=== PATIENT | male | born 1945 | race Hispanic/Latino ===

== ENCOUNTER 2016-09-21 11:04 | Outpatient (CLI) | payer OTHER, MEDICARE ==
[2016-09-21 12:36] LABS: #Eosinphils 0.1 thou/uL (0.0-0.7); #Monocytes 0.4 thou/uL (0.11-0.59); #Neutrophils 4.4 thou/uL (1.40-6.50); %Basophils 0.6 % (0.0-1.0); %Monocytes 6.3 % (0.0-10.0); Hematocrit 41.2 % (42.0-52.0); Mean Platelet Volume 8.7 fL (7.4-10.4); Red Blood Cell (RBC) Count 4.13 mill/uL (4.70-6.10)
[2016-09-21 12:57] LABS: ALT (SGPT) 15 U/L (0-55); AST (SGOT) 16 U/L (5-34); Alkaline Phosphatase 69 U/L (40-150); Anion Gap 11 mmol/L (10-20); BUN (Urea Nitrogen) 11 mg/dL (8.4-25.7); Bilirubin, Total 0.6 mg/dL (0.2-1.2); Calc. Creatinine Clearance 0 mL/min (70-130); Calcium 8.5 mg/dL (7.8-10.44); Carbon Dioxide 26 mmol/L (23-31); Chloride 112 mmol/L (98-107); Estimated GFR-MDRD Greater than 90; Globulin 2.8 g/dL (2.4-3.5); Protein, Total 6.6 g/dL (5.8-8.1)
[2016-09-21 13:25] LABS: Hemoglobin A1c 6.9 % (4.0-6.0)
[2016-09-21 19:18] LABS: Microalbumin Urine 1.1 mg/dL (0.5-50.0)
== END 2016-09-21 11:05 | disposition home or self-care (01) ==
LOC: HPCALD 11:04
PROVIDERS: ATTEND Family Medicine
DX: E11.65 Type 2 diabetes mellitus with hyperglycemia (principal)
CPT/HCPCS: 36415; 80053; 82043; 83036; 84443; 85025

== ENCOUNTER 2016-09-25 15:52 | Outpatient (CLI) | payer OTHER, MEDICARE | END 2016-09-25 15:53 | disposition home or self-care (01) | LOC: HPCALD 15:52 | PROVIDERS: ATTEND Family Medicine | DX: D53.9 Nutritional anemia, unspecified (principal) | CPT/HCPCS: 36415; 82607; 82746 ==

== ENCOUNTER 2017-04-23 16:03 | Outpatient (CLI) | payer OTHER, MEDICARE ==
[2017-04-23 16:35] LABS: ALT (SGPT) 19 U/L (8-55); AST (SGOT) 24 U/L (5-34); Albumin 4.4 g/dL (3.4-4.8); Alkaline Phosphatase 70 U/L (40-150); Anion Gap 18 mmol/L (10-20); BUN (Urea Nitrogen) 22 mg/dL (8.4-25.7); Bilirubin, Total 0.8 mg/dL (0.2-1.2); Calc. Creatinine Clearance 0 mL/min (70-130); Calcium 9.3 mg/dL (7.8-10.44); Carbon Dioxide 21 mmol/L (23-31); Chloride 108 mmol/L (98-107); Estimated GFR-MDRD 50; Globulin 3.1 g/dL (2.4-3.5); Glucose 124 mg/dL (80-115); Potassium 4.2 mmol/L (3.5-5.1); Protein, Total 7.5 g/dL (5.8-8.1); Sodium 143 mmol/L (136-145)
== END 2017-04-23 16:04 | disposition home or self-care (01) ==
LOC: HPCALD 16:03
PROVIDERS: ATTEND Family Medicine
DX: I50.9 Heart failure, unspecified (principal)
CPT/HCPCS: 36415; 80053; 83880

== ENCOUNTER 2017-04-26 15:49 | Outpatient (CLI) | payer OTHER, MEDICARE ==
[2017-04-26 16:46] LABS: Anion Gap 19 mmol/L (10-20); BUN (Urea Nitrogen) 27 mg/dL (8.4-25.7); Calc. Creatinine Clearance 0 mL/min (70-130); Calcium 9.3 mg/dL (7.8-10.44); Carbon Dioxide 21 mmol/L (23-31); Chloride 108 mmol/L (98-107); Estimated GFR-MDRD 59; Glucose 62 mg/dL (80-115); Potassium 4.2 mmol/L (3.5-5.1); Sodium 144 mmol/L (136-145)
== END 2017-04-26 15:50 | disposition home or self-care (01) ==
LOC: HPCALD 15:49
PROVIDERS: ATTEND Family Medicine
DX: I50.9 Heart failure, unspecified (principal)
CPT/HCPCS: 36415; 80048

== ENCOUNTER 2018-12-14 10:31 | Outpatient (CLI) | payer OTHER, MEDICARE ==
--- NOTE | 2018-12-14 13:06 | RAD ---
LEFT SHOULDER 3 VIEWS: DATE: 12/14/2018. FINDINGS: There is irregularity along the upper outer portion of the humeral head as it contacts the greater tu bercle. This does not appear acute. There is a little bony lipping of the glenoid fossa. No acute fracture or severe arthritic change was seen. There are some mild arthritic changes in the AC joint, however. The visible adjacent ribs appear intact. IMPRESSION: Mild chronic changes, but no acute findings. POS: HOME
--- NOTE | 2018-12-14 18:50 | RAD ---
RIGHT KNEE FOUR VIEWS: 12/14/18 Severe osteoarthritis is present with joint space narrowing, especially medially, osteophytes, and so me bony sclerosis. No acute fracture was seen. There is probably a small joint effusion but not a lar ge one. Arterial calcifications are evident. IMPRESSION: Severe osteoarthritis. POS: HOME
== END 2018-12-14 10:32 | disposition home or self-care (01) ==
LOC: BURRAD 10:31
PROVIDERS: ATTEND Family Medicine
DX: M17.11 Unilateral primary osteoarthritis, right knee (principal); M75.52 Bursitis of left shoulder

== ENCOUNTER 2019-05-11 07:37 | Outpatient (CLI) | payer OTHER, MEDICARE ==
--- NOTE | 2019-05-11 17:42 | CT ---
CT ABDOMEN AND PELVIS WITH CONTRAST: 05/11/[address] of the abdomen and pelvis was performed for evaluation of left lower quadrant pain. The lung bases are clear except for some minor right lower lobe scarring and some dependent atelectas is. Some contrast is seen in the lower esophagus suggesting that there may be a degree of reflux pres ent. The liver, spleen, pancreas, adrenal glands, kidneys, and abdominal aorta all showed no acute finding s. Small amounts of perinephric stranding bilaterally is nonspecific. An ectopic piece of splenic tis shreya is seen near the splenic hilum and is of no concern. There is no distention of bowel, dilation, or colonic inflammatory change. The haustra are rather pro minent in this patient but not so much so to make a diagnosis such as colitis. There is no free air o f free fluid seen. CT of the pelvis showed no pelvic masses, fluid collections, or inflammatory changes. There was no si gn of diverticulitis. Incidentally noted were extensive degenerative changes of the lumbar spine. IMPRESSION: No acute findings to explain the patient's pain. POS: HOME
== END 2019-05-11 07:38 | disposition home or self-care (01) ==
LOC: BURCT 07:37
PROVIDERS: ATTEND Family Medicine
DX: R10.32 Left lower quadrant pain (principal)
CPT/HCPCS: 74177

== ENCOUNTER 2019-08-15 20:50 | Emergency (ER) | payer OTHER, MEDICARE ==
[2019-08-15] MEDS ORDERED: Benzonatate 100 MG CAP ONE (21:41)
[2019-08-15] MEDS ORDERED: AMOXicillin 250 MG CAP ONE (21:45)
--- NOTE | 2019-08-15 21:59 | RAD ---
PORTABLE CHEST: 08/15/19 An AP portable film at 2113 is compared with a 09/13/15 study. The heart is enlarged as before, approximately the same size allowing for differences in projection. There is no vascular congestion, edema, or pleural effusion. A slight amount of haziness adjacent to the right heart border is probably a fat pad, scarring, or both. IMPRESSION: Cardiomegaly with minimal change since 2016. POS: HOME
== END 2019-08-15 21:50 | disposition home or self-care (01) ==
LOC: BURERS 20:50
DX: J20.9 Acute bronchitis, unspecified (principal); I10 Essential (primary) hypertension; E78.5 Hyperlipidemia, unspecified; E11.9 Type 2 diabetes mellitus without complications; I48.91 Unspecified atrial fibrillation; I25.10 Atherosclerotic heart disease of native coronary artery without angina pectoris; M17.0 Bilateral primary osteoarthritis of knee; D50.9 Iron deficiency anemia, unspecified; G47.00 Insomnia, unspecified; Z79.82 Long term (current) use of aspirin; Z79.899 Other long term (current) drug therapy; Z79.84 Long term (current) use of oral hypoglycemic drugs
CPT/HCPCS: 71045; 87804; 94640; J7620

== ENCOUNTER 2020-09-12 09:36 | Outpatient (CLI) | payer MEDICARE | END 2020-09-12 09:37 | disposition home or self-care (01) | LOC: BURRAD 09:36 | PROVIDERS: ATTEND Family Medicine | DX: R05 Cough (principal); I51.7 Cardiomegaly; J98.4 Other disorders of lung | CPT/HCPCS: 71046 ==

== ENCOUNTER 2020-11-13 10:51 | Outpatient (CLI) | payer MEDICARE | END 2020-11-13 10:52 | disposition home or self-care (01) | LOC: BURRAD 10:51 | PROVIDERS: ATTEND Registered Nurse Community Health | DX: R05 Cough (principal); I51.7 Cardiomegaly | CPT/HCPCS: 71046 ==

== ENCOUNTER 2023-03-13 04:28 | Emergency (ER) | payer MEDICARE ==
[2023-03-13] MEDS ORDERED: dilTIAZem 125 MG/25 ML SDV ONE ×2 (05:08→05:35)
[2023-03-13 05:10] LABS: #Basophils 0.1 thou/uL (0.0-0.2); #Lymphocytes 0.7 thou/uL (1.20-3.40); #Monocytes 0.7 thou/uL (0.11-0.59); #Neutrophils 6.6 thou/uL (1.40-6.50); %Basophils 0.9 % (0.0-1.0); %Eosinophils 0.2 % (0.0-10.0); %Lymphocytes 8.3 % (21.0-51.0); %Monocytes 9.1 % (0.0-10.0); %Neutrophils 81.5 % (42.0-75.0); Hematocrit 39.9 % (42.0-52.0); Hemoglobin 12.6 g/dL (14.0-18.0); Mean Corpuscular HGB CONC 31.6 g/dL (32.0-36.0); Mean Corpuscular Hemoglobin 31.7 pg (27.0-31.0); Mean Platelet Volume 8.3 fL (7.4-10.4); Platelet Count 145 10x3/uL (130-400); RBC Distribution Width 12.1 % (11.5-14.5); Red Blood Cell (RBC) Count 3.97 mill/uL (4.70-6.10); White Blood Cell (WBC) Count 8.1 10x3/uL (4.8-10.8)
[2023-03-13 05:21] LABS: ALT (SGPT) 20 U/L (8-55); AST (SGOT) 20 U/L (5-34); Albumin 4.3 g/dL (3.4-4.8); Alkaline Phosphatase 79 U/L (40-110); Anion Gap 17 mmol/L (10-20); BUN (Urea Nitrogen) 18 mg/dL (8.4-25.7); Bilirubin, Total 0.7 mg/dL (0.2-1.2); Calc. Creatinine Clearance 0 mL/min (70-130); Calcium 8.7 mg/dL (7.8-10.44); Carbon Dioxide 20 mmol/L (23-31); Chloride 105 mmol/L (98-107); Estimated GFR 78; Globulin 2.9 g/dL (2.4-3.5); Glucose 205 mg/dL (83-110); Potassium 3.7 mmol/L (3.5-5.1); Protein, Total 7.2 g/dL (5.8-8.1); Sodium 138 mmol/L (136-145)
[2023-03-13 05:51] LABS: SARS-CoV-2 NAA Rapid Test DETECTED (NotDetected)
[2023-03-13] MEDS ORDERED: Acetaminophen 500 MG TAB ONE (06:08)
[2023-03-13] MEDS ORDERED: dilTIAZem 25 MG/5 ML VIAL ONE (08:12)
== END 2023-03-13 08:18 | disposition short-term general hospital (02) ==
LOC: BURERS 04:28
DX: U07.1 COVID-19 (principal); I48.91 Unspecified atrial fibrillation; I10 Essential (primary) hypertension; E78.00 Pure hypercholesterolemia, unspecified; E11.9 Type 2 diabetes mellitus without complications; I25.10 Atherosclerotic heart disease of native coronary artery without angina pectoris; G47.00 Insomnia, unspecified; D53.9 Nutritional anemia, unspecified; M17.0 Bilateral primary osteoarthritis of knee; Z79.82 Long term (current) use of aspirin; Z79.84 Long term (current) use of oral hypoglycemic drugs; Z79.01 Long term (current) use of anticoagulants; Z79.899 Other long term (current) drug therapy
CPT/HCPCS: 71045; 80053; 83880; 84484; 85025; 93005; 96365; 96366; 96376

== ENCOUNTER 2023-12-09 04:53 | Emergency (ER) | payer MEDICARE ==
[2023-12-09] MEDS ORDERED: Nitroglycerin 0.4 MG TAB 1 EACH ONE (05:12)
[2023-12-09 05:13] LABS: #Basophils 0.1 thou/uL (0.0-0.2); #Eosinphils 0.1 thou/uL (0.0-0.7); #Lymphocytes 0.9 thou/uL (1.20-3.40); #Monocytes 0.7 thou/uL (0.11-0.59); #Neutrophils 9.7 thou/uL (1.40-6.50); %Basophils 0.6 % (0.0-1.0); %Eosinophils 0.8 % (0.0-10.0); %Lymphocytes 8.1 % (21.0-51.0); %Monocytes 6.3 % (0.0-10.0); %Neutrophils 84.2 % (42.0-75.0); Hematocrit 37.6 % (42.0-52.0); Hemoglobin 12.5 g/dL (14.0-18.0); Mean Corpuscular HGB CONC 33.2 g/dL (32.0-36.0); Mean Corpuscular Hemoglobin 32.9 pg (27.0-31.0); Mean Corpuscular Volume 99.1 fl (78.0-98.0); Mean Platelet Volume 7.9 fL (7.4-10.4); Platelet Count 151 10x3/uL (130-400); RBC Distribution Width 12.3 % (11.5-14.5); Red Blood Cell (RBC) Count 3.79 mill/uL (4.70-6.10); White Blood Cell (WBC) Count 11.5 10x3/uL (4.8-10.8)
[2023-12-09] MEDS ORDERED: Aspirin Chewable 81 MG TAB ONE (05:13)
[2023-12-09] MEDS ORDERED: Albuterol 2.5 MG (3 mL) NEB ONE (05:19)
[2023-12-09 05:39] LABS: ALT (SGPT) 17 U/L (8-55); AST (SGOT) 21 U/L (5-34); Alkaline Phosphatase 82 U/L (40-110); Anion Gap 15 mmol/L (10-20); BUN (Urea Nitrogen) 23 mg/dL (8.4-25.7); Bilirubin, Total 0.7 mg/dL (0.2-1.2); Calc. Creatinine Clearance 0 mL/min (70-130); Calcium 8.8 mg/dL (7.8-10.44); Carbon Dioxide 23 mmol/L (23-31); Chloride 104 mmol/L (98-107); Estimated GFR 71; Globulin 2.9 g/dL (2.4-3.5); Glucose 120 mg/dL (83-110); Potassium 4.5 mmol/L (3.5-5.1); Protein, Total 6.9 g/dL (5.8-8.1); Sodium 137 mmol/L (136-145)
[2023-12-09 05:40] LABS: Troponin I 0.027 ng/mL (< 0.028)
[2023-12-09 07:10] LABS: Influenza A by NAA Not Detected (NotDetected); Influenza B by NAA Not Detected (NotDetected); SARS-CoV-2 NAA Rapid Test Not Detected (NotDetected)
[2023-12-09 08:31] LABS: Troponin I 0.033 ng/mL (< 0.028)
== END 2023-12-09 09:30 | disposition short-term general hospital (02) ==
LOC: BURERS 04:53
DX: R06.00 Dyspnea, unspecified (principal); R09.02 Hypoxemia; R93.1 Abnormal findings on diagnostic imaging of heart and coronary circulation; I48.91 Unspecified atrial fibrillation; I25.10 Atherosclerotic heart disease of native coronary artery without angina pectoris; I10 Essential (primary) hypertension; E11.9 Type 2 diabetes mellitus without complications; Z79.84 Long term (current) use of oral hypoglycemic drugs; Z79.899 Other long term (current) drug therapy
CPT/HCPCS: 71045; 80053; 83880; 84443; 84484; 85025; 85379; 93005; 94640; J7611